=== PATIENT | female | born 1985 | race Caucasian/White ===

== ENCOUNTER 2017-08-24 11:56 | Emergency (ER) | payer BC ==
[~2017-08-24 11:56] MED LIST: ALPRAZOLAM0.25 M2 PO
== END 2017-08-24 13:43 | disposition left against medical advice (07) ==
LOC: EME 11:56
DX: R50.9 Fever, unspecified (principal); M54.5 Low back pain; Z53.21 Procedure and treatment not carried out due to patient leaving prior to being seen by health care provider

== ENCOUNTER 2017-08-26 09:52 | Inpatient (IN) | payer BC ==
[~2017-08-26] VITALS: Ht 167.6 cm; Wt 43.3 kg
[2017-08-26 11:27] LABS: HEMATOCRIT 37.4 % (36.0-46.0); HEMOGLOBIN 12.5 G/DL (11.9-15.5); MCHC 33.4 G/DL (30.0-36.0); MCV 95.7 FL (83-99); PLATELET COUNT 205 K/uL (156-360); RBC DIS.WIDTH-CV 13.1 % (11.8-14.6); RBC DIS.WIDTH-SD 46.5 % (39-53); RED BLOOD COUNT 3.91 M/uL (3.80-5.20); WHITE BLOOD COUNT 15.5 K/uL (4.1-10.2)
[2017-08-26 11:38] LABS: CHLORIDE 105 mEq/L (99-109); POTASSIUM 3.5 mEq/L (3.7-5.4); SODIUM 136 mEq/L (136-147)
[2017-08-26 11:40] LABS: GLUCOSE 92 mg/dL (70-99)
[2017-08-26 11:42] LABS: APPEARANCE CLEAR ((CLEAR)); BILIRUBIN NEGATIVE; BLOOD NEGATIVE; COLOR AMBER ((YELLOW)); GLUCOSE (STRIP) NEGATIVE; KETONES NEGATIVE; LEUKOCYTES NEGATIVE; NITRITE POSITIVE; PROTEIN (STRIP) 30; SPECIFIC GRAVITY 1.015 (1.000-1.030)
[2017-08-26 11:44] LABS: CREATININE 0.7 mg/dL (0.6-1.3); GFR ESTIMATE (CALCULATED) > 59 mL/min/
[2017-08-26 11:45] LABS: UREA NITROGEN (BUN) 7 mg/dL (9-23)
[2017-08-26 11:46] LABS: BACTERIA 1+ /HPF; EPITHELIAL CELLS 2+ /HPF; MUCUS TRACE /LPF; RED BLOOD CELLS 15-20 /HPF (0-5)
[2017-08-26] MEDS ORDERED: CLONAZEPAM0.5 MG PO (16:29)
[2017-08-26] MEDS ORDERED: ERGOCALCIF50000 UNIT PO (16:29)
[2017-08-26] MEDS ORDERED: ESCITALOPRAM OX10 MG PO (16:30)
[2017-08-26 17:11] VITALS: BP 107/66
[2017-08-26 19:32] VITALS: BP 97/54
[2017-08-26 23:25] VITALS: BP 102/56
[2017-08-27 03:27] VITALS: BP 117/69
[2017-08-27 08:26] VITALS: BP 101/59
[2017-08-27 08:34] LABS: BASOPHIL (%) 0.3 % (0-1); EOSINOPHIL (%) 1.5 % (0-5); EOSINOPHIL COUNT 0.1 K/uL (0-0.3); HEMATOCRIT 31.9 % (36.0-46.0); HEMOGLOBIN 10.4 G/DL (11.9-15.5); IMMATURE GRANULOCYTE (%) 0.3 % (0.0-0.7); LYMPHOCYTE (%) 20.8 % (15-42); MCH 31.2 PG (29.0-34.0); MCHC 32.6 G/DL (30.0-36.0); MCV 95.8 FL (83-99); MONOCYTE (%) 18.8 % (3-12); MONOCYTE COUNT 1.8 K/uL (0-0.8); NEUTROPHIL (%) 58.3 % (45-76); NEUTROPHIL COUNT 5.6 K/uL (1.8-6.4); PLATELET COUNT 181 K/uL (156-360); RBC DIS.WIDTH-CV 13.1 % (11.8-14.6); RBC DIS.WIDTH-SD 46.3 % (39-53); RED BLOOD COUNT 3.33 M/uL (3.80-5.20); WHITE BLOOD COUNT 9.6 K/uL (4.1-10.2)
[2017-08-27 08:49] LABS: ALBUMIN 3.2 G/DL (3.2-4.8); ALKALINE PHOSPHATASE 81 IU/L (3-129); ALT (GPT) 27 IU/L (3-49); AST (GOT) 29 IU/L (2-34); CHLORIDE 107 MEQ/L (99-109); CREATININE 0.7 MG/DL (0.6-1.3); GFR ESTIMATE (CALCULATED) > 59 mL/min/; GLUCOSE 115 mg/dL (70-99); POTASSIUM 3.4 MEQ/L (3.7-5.4); SODIUM 139 MEQ/L (136-147); TOTAL BILIRUBIN 0.4 MG/DL (0.0-1.0); TOTAL PROTEIN 5.1 G/DL (6.4-8.3); UREA NITROGEN (BUN) 5 mg/dL (9-23)
[2017-08-27 16:30] VITALS: BP 106/72
[2017-08-27 23:44] VITALS: BP 114/71
[2017-08-28 08:12] VITALS: BP 115/72
[2017-08-28 15:39] VITALS: BP 108/59
[2017-08-28 17:03] VITALS: BP 108/59
[2017-08-28] MEDS ORDERED: OXYCODONE HCL5 MG PO (20:56)
[2017-08-28] MEDS ORDERED: CEFTRIAXONE1 G1 IM (20:56)
== END 2017-08-28 21:47 | disposition home or self-care (01) | DRG 690 ==
LOC: EME 09:52 → EDOF 14:40 → 3EAST 14:40 → ENRESERV 15:00 → 3EAST 17:01 → ENRESERV 08-28 16:24 → CANRESERV 08-28 19:04 → ENRESERV 08-28 19:04 → 3EAST 08-28 21:47
PROVIDERS: Emergency Medicine; Internal Medicine
DX: N10 Acute pyelonephritis (principal); Z68.1 Body mass index [BMI] 19.9 or less, adult; F33.9 Major depressive disorder, recurrent, unspecified; E87.6 Hypokalemia; F41.9 Anxiety disorder, unspecified; G47.00 Insomnia, unspecified; D64.9 Anemia, unspecified; R31.9 Hematuria, unspecified; R11.2 Nausea with vomiting, unspecified; R16.0 Hepatomegaly, not elsewhere classified; R63.6 Underweight; Z87.440 Personal history of urinary (tract) infections
CPT/HCPCS: 74177; 80048; 80053; 81003; 85025; 85027; 87040; 87086; 99281; 99285; J0696; J1170; J1885; J3480; J7030